=== PATIENT | female | born 1965 | race Asian ===

== ENCOUNTER 2019-01-27 12:22 | Emergency (ER) | payer SELFPAY ==
[2019-01-27 12:38] VITALS: BP 126/76
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
[2019-01-27] MEDS ORDERED: TORADOL IM ONE (15:01)
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
== END 2019-01-27 16:03 | disposition home or self-care (01) ==
LOC: ED 12:22
DX: S39.012A Strain of muscle, fascia and tendon of lower back, initial encounter (principal); S16.1XXA Strain of muscle, fascia and tendon at neck level, initial encounter; M79.604 Pain in right leg; E11.9 Type 2 diabetes mellitus without complications; Z79.899 Other long term (current) drug therapy; Z88.2 Allergy status to sulfonamides; V49.9XXA Car occupant (driver) (passenger) injured in unspecified traffic accident, initial encounter; Y93.89 Activity, other specified; Y92.488 Other paved roadways as the place of occurrence of the external cause; Y99.8 Other external cause status
CPT/HCPCS: 72040; 72100; 96372; 99283; J1885